=== PATIENT | male | born 1960 | race Two or more races ===

== ENCOUNTER 2017-07-27 22:57 | Emergency (ER) | payer OTHER ==
[2017-07-27 23:12] VITALS: PULSE 97; TEMP 97.5; BMI 33.1
--- NOTE | 2017-07-27 23:30 | PDOC ---
History of Present Illness <Frances Chanel - Last Filed: 07/28/17 01:48> - General History Source: Patient Exam Limitations: No Limitations - History of Present Illness Initial Comments: 07/28/17 02:11 Patient is a 57 year old male with a significant past medical history of HTN, Anxiety, who presents to the ED with complaints of chest discomfort and high blood pressure that began earlier this evening. Patient reports leaving his friends house when he began to experience what he felt was an anxiety attack followed by right sided chest discomfort secondary to high BP. He reports experiencing associated symptoms of bilateral leg cramping of thigh and calves. Denies nausea, vomiting. Denies fevers, chills. Denies diarrhea, constipation, dysuria, hematuria. Denies trauma to affected area. Denies any other symptoms. Allergies: None Social history: No smoking. No alcohol. No illicit drugs. Surgical history: None PMD: Dr. Strickland <Zaire Lemus - Last Filed: 07/28/17 02:12> - General Chief Complaint: Psychiatric Stated Complaint: BLOOD PRESSURE Time Seen by Provider: 07/27/17 23:30 Past History - Suicide/Smoking/Psychosocial Hx Smoking History: Never smoked <ChanelFrances - Last Filed: 07/28/17 01:48> <Zaire Lemus - Last Filed: 07/28/17 02:12> - Past Medical History Allergies/Adverse Reactions: Allergies Allergy/AdvReac Type Severity Reaction Status Date / Time No Known Allergies Allergy Verified 07/27/17 23:12 Home Medications: Ambulatory Orders NK [No Known Home Medication] 07/28/17 Review of Systems - Review of Systems Able to Perform ROS?: Yes Comments:: 07/28/17 02:11 GENERAL/CONSTITUTIONAL: No fever or chills. No weakness. HEAD, EYES, EARS, NOSE AND THROAT: No change in vision. No ear pain or discharge. No sore throat. CARDIOVASCULAR: +Chest discomfort. No shortness of breath. RESPIRATORY: No cough, wheezing, or hemoptysis. GASTROINTESTINAL: No nausea, vomiting, diarrhea or constipation. GENITOURINARY: No dysuria, frequency, or change in urination. MUSCULOSKELETAL: +Bilateral leg cramping. No joint or muscle swelling. No neck or back pain. SKIN: No rash NEUROLOGIC: No headache, vertigo, loss of consciousness, or change in strength/ sensation. ENDOCRINE: No increased thirst. No abnormal weight change. HEMATOLOGIC/LYMPHATIC: No anemia, easy bleeding, or history of blood clots. ALLERGIC/IMMUNOLOGIC: No hives or skin allergy. <Zaire Lemus - Last Filed: 07/28/17 02:12> *Physical Exam - Vital Signs Last Vital Signs Temp Pulse Resp BP Pulse Ox 97.5 F L 97 H 18 167/73 100 07/27/17 23:06 07/27/17 23:13 07/27/17 23:13 07/27/17 23:13 07/27/17 23:06 <Frances Chanel - Last Filed: 07/28/17 01:48> - Vital Signs Last Vital Signs Temp Pulse Resp BP Pulse Ox 97.5 F L 97 H 18 156/74 100 07/27/17 23:06 07/27/17 23:13 07/27/17 23:13 07/28/17 01:34 07/27/17 23:06 - Physical Exam Comments: 07/28/17 02:11 GENERAL: Awake, alert, and fully oriented, in no acute distress HEAD: No signs of trauma EYES: PERRLA, EOMI, sclera anicteric, conjunctiva clear ENT: Auricles normal inspection, hearing grossly normal, nares patent, oropharynx clear without exudates. Moist mucosa NECK: Normal ROM, supple, no lymphadenopathy, JVD, or masses LUNGS: Breath sounds equal, clear to auscultation bilaterally. No wheezes, and no crackles HEART: Regular rate and rhythm, normal S1 and S2, no murmurs, rubs or gallops ABDOMEN: Soft, nontender, normoactive bowel sounds. No guarding, no rebound. No masses EXTREMITIES: Normal range of motion, no edema. No clubbing or cyanosis. No cords, erythema, or tenderness NEUROLOGICAL: Cranial nerves II through XII grossly intact. Normal speech, normal gait SKIN: Warm, Dry, normal turgor, no rashes or lesions noted. <Zaire Lemus - Last Filed: 07/28/17 02:12> Heart Score/ECG Review - ECG Intrepretation Comment:: 07/28/17 01:35 Completed @23:21:15 Sinus Bradycardia Possible left atrial enlargement Incomplete right bundle branch block Left ventricular hypertrophy Abnormal ECG Vent. rate 52 bpm NM interval 176 ms QRS duration 98 ms <Zaire Lemus - Last Filed: 07/28/17 02:12> ED Treatment Course - LABORATORY CBC & Chemistry Diagram: 07/28/17 00:03 07/28/17 00:03 <Frances Chanel - Last Filed: 07/28/17 01:48> - LABORATORY CBC & Chemistry Diagram: 07/28/17 00:03 07/28/17 00:03 - ADDITIONAL ORDERS Additional order review: Laboratory Results 07/28/17 00:03 Sodium 141 Potassium 3.8 Chloride 106 Carbon Dioxide 23 Anion Gap 12 BUN 14 Creatinine 0.9 Creat Clearance w eGFR > 60 Random Glucose 98 Calcium 8.4 L Total Bilirubin 0.8 AST 21 ALT 17 Alkaline Phosphatase 85 Creatine Kinase 99 Troponin I < 0.02 Total Protein 7.6 Albumin 3.9 07/28/17 00:03 RBC 5.25 MCV 85.3 MCHC 33.9 RDW 13.4 MPV 7.9 Neutrophils % 67.9 Lymphocytes % 17.7 Monocytes % 11.4 H Eosinophils % 2.4 Basophils % 0.6 - Medications Given in the ED: ED Medications Discontinued Medications Generic Name Dose Route Start Last Admin Trade Name Freq PRN Reason Stop Dose Admin Lisinopril 20 mg 07/28/17 01:23 07/28/17 01:34 Prinivil PO 07/28/17 01:24 20 mg ONCE ONE Administration Nitroglycerin 0.4 mg 07/27/17 23:55 07/28/17 00:05 Nitrostat - SL 07/27/17 23:56 0.4 mg ONCE ONE Administration <Zaire Lemus - Last Filed: 07/28/17 02:12> Medical Decision Making - Medical Decision Making 07/28/17 01:44 Pt comes with HTN; he also has a hx of bradycardia. Pt has anxiety. He was out with friends today and says that he ate out and perhaps ate something salty. He comes now with BP. He has slight CP, atypical fleeting on the right side of his chest. Labs normal, exam normal, ekg and cxr normal. Pt will be given an extra dose of his lisinopril he will be discharged home. Pt feels well and he has no other complaints. STates that he is under stress; he is having financial problems. 07/28/17 01:48 Pt has an appointment with a obstetrician in the coming week. He is stable for discahrge home. <Frances Chanel - Last Filed: 07/28/17 01:48> *DC/Admit/Observation/Transfer - Discharge Dispostion Admit: No <Frances Chanel - Last Filed: 07/28/17 01:48> - Attestations Scribe Attestion: 07/28/17 01:37 Documentation prepared by Zaire Lemus, acting as medical information officer for Frances Chanel MD/DO. <Zaire Lemus - Last Filed: 07/28/17 02:12> Diagnosis at time of Disposition: Atypical chest pain - Discharge Dispostion Disposition: HOME Condition at time of disposition: Stable - Referrals Referrals: Shilo Strickland MD [Primary Care Provider] - - Patient Instructions Printed Discharge Instructions: DI for Atypical Chest Pain
[2017-07-27] MEDS ORDERED: NITROGLYCERIN SUBLINGUAL 1/150 0.4 MG TAB SL ONE (23:55)
[2017-07-28 00:12] LABS: BASO % 0.6 % (0-2.0); EOS % 2.4 % (0-4.5); HEMATOCRIT 44.8 % (35.4-49); HEMOGLOBIN 15.2 GM/dL (11.7-16.9); LYMPH % 17.7 % (8-40); MCH 28.9 pg (25.7-33.7); MCHC 33.9 g/dl (32.0-35.9); MEAN CELL VOLUME 85.3 fl (80-96); MEAN PLT VOLUME 7.9 fl (7.5-11.1); MONO % 11.4 % (3.8-10.2); NEUT % 67.9 % (42.8-82.8); PLATELET COUNT 254 K/MM3 (134-434); RBC 5.25 M/mm3 (4.00-5.60); RDW 13.4 % (11.9-15.9); WHITE BLOOD COUNT 11.1 K/mm3 (4.0-10.0)
[2017-07-28 00:41] LABS: ALBUMIN 3.9 g/dl (3.4-5.0); ANION GAP 12 (8-16); BILIRUBIN,TOTAL 0.8 mg/dL (0.2-1.0); BLOOD UREA NITROGEN 14 mg/dL (7-18); CALCIUM 8.4 mg/dL (8.5-10.1); CHLORIDE 106 mmol/L (98-107); CO2 23 mmol/L (21-32); CREATININE 0.9 mg/dL (0.7-1.3); GLUCOSE,RANDOM 98 mg/dL (74-106); POTASSIUM 3.8 mmol/L (3.5-5.1); SGOT/AST 21 U/L (15-37); SGPT/ALT 17 U/L (12-78); SODIUM 141 mmol/L (136-145); TOT PROT 7.6 g/dl (6.4-8.2)
[2017-07-28 00:43] LABS: ALK PHOS 85 U/L (45-117)
[2017-07-28] MEDS ORDERED: LISINOPRIL 20 MG TABLET (FP) PO ONE (01:23)
[2017-07-28] MEDS ORDERED: LISINOPRIL 20 MG TABLET (FP) ONE (01:32)
[2017-07-28 01:34] VITALS: BP 156/74
--- NOTE | 2017-07-31 01:09 | EKG ---
Test Reason : Blood Pressure : / mmHG Vent. Rate : 052 BPM Atrial Rate : 052 BPM P-R Int : 176 ms QRS Dur : 098 ms QT Int : 434 ms P-R-T Axes : 050 -27 004 degrees QTc Int : 403 ms SINUS BRADYCARDIA POSSIBLE LEFT ATRIAL ENLARGEMENT INCOMPLETE RIGHT BUNDLE BRANCH BLOCK LEFT VENTRICULAR HYPERTROPHY ABNORMAL ECG NO PREVIOUS ECGS AVAILABLE Confirmed by STEVEN CARDENAS MD ([id number]) on 07/31/2017 1:09:01 AM Referred By: Confirmed By:STEVEN CARDENAS MD
== END 2017-07-28 02:00 | disposition home or self-care (01) ==
LOC: JER 22:57
DX: R07.89 Other chest pain (principal); I10 Essential (primary) hypertension
CPT/HCPCS: 36415; 71046-TC-FY; 80053; 82550; 84484; 85025; 93005; 93010; 99281-25

== ENCOUNTER 2018-04-21 15:51 | Emergency (ER) | payer OTHER ==
--- NOTE | 2018-04-21 16:12 | PDOC ---
Rapid Medical Evaluation Time Seen by Provider: 04/21/18 16:09 Medical Evaluation: Allergies Allergy/AdvReac Type Severity Reaction Status Date / Time No Known Allergies Allergy Verified 07/27/17 23:12 04/21/18 16:10 I have performed a brief in-person evaluation of this patient. The patient presents with a chief complaint of:severe lower back and abd pain x several days. Also c/o urinating more frequently x 1 month. H/o HTN Pertinent physical exam findings: BP 170/74,benign abd, no CVAT I have ordered the following:labs/ua The patient will proceed to the ED for further evaluation Discharge Disposition - Diagnosis Back pain Qualifiers: Back pain location: low back pain Chronicity: acute Back pain laterality: bilateral Sciatica presence: without sciatica Qualified Code(s): M54.5 - Low back pain - Discharge Dispostion Condition at time of disposition: Stable - Referrals - Patient Instructions - Post Discharge Activity
[2018-04-21 16:14] VITALS: BMI 33.1
--- NOTE | 2018-04-21 16:20 | PDOC ---
History of Present Illness - General Chief Complaint: Pain, Acute Stated Complaint: stomach discomfort/back pain Time Seen by Provider: 04/21/18 16:09 - History of Present Illness Initial Comments: The patient is a 57M w/ a history of HTN who presents for evaluation of 1w of lower back pain and generalized abdominal cramping. The patient reports that the back pain started first. The patient described the lower back pain as an intermittent, dull, and b/l. He reports that the abdominal pain started 1-2 days later. Described at generalized , cramping, constant but waxing/waning, and worse at the umbilicus. He tried taking 2 Dorys for his pain with no relief. He denies having had this pain before. Denies fevers/chills, recent illness, STOKES, vision change, chest pain, SOB, cough , N/V/C/D, dysuria, hematuria, or blood in his stool. 04/21/18 16:56 Past History - Past Medical History Allergies/Adverse Reactions: Allergies Allergy/AdvReac Type Severity Reaction Status Date / Time No Known Allergies Allergy Verified 07/27/17 23:12 Home Medications: Ambulatory Orders Lisinopril [Prinivil -] 40 mg PO DAILY 04/21/18 RX: Amlodipine Besylate 5 mg PO DAILY 04/21/18 COPD: No HTN: Yes - Surgical History Cardiac Surgery: No Gastric Stapling: No Lung Surgery: No - Immunization History Immunization Up to Date: No - Suicide/Smoking/Psychosocial Hx Smoking History: Never smoked Have you smoked in the past 12 months: No Information on smoking cessation initiated: No Hx Alcohol Use: No Drug/Substance Use Hx: No Review of Systems - Review of Systems Able to Perform ROS?: Yes Comments:: GENERAL/CONSTITUTIONAL: No fever or chills. No weakness HEAD, EYES, EARS, NOSE AND THROAT: No change in vision. No ear pain or discharge. No sore throat CARDIOVASCULAR: No chest pain or shortness of breath RESPIRATORY: Denies cough, hemoptysis GASTROINTESTINAL: per HPI GENITOURINARY: No dysuria, frequency, or change in urination MUSCULOSKELETAL: No joint or muscle swelling or pain. No neck or back pain SKIN: No rash NEUROLOGIC: No headache, vertigo, loss of consciousness, or change in strength/ sensation ENDOCRINE: No increased thirst. No abnormal weight change HEMATOLOGIC/LYMPHATIC: No anemia, easy bleeding, or history of blood clots ALLERGIC/IMMUNOLOGIC: No hives or skin allergy 04/21/18 16:19 Is the patient limited Albanian proficient: No *Physical Exam - Vital Signs Last Vital Signs Temp Pulse Resp BP Pulse Ox 97.9 F 63 16 170/74 100 04/21/18 16:11 04/21/18 16:11 04/21/18 16:11 04/21/18 16:11 04/21/18 16:11 - Physical Exam Comments: GENERAL: Awake, alert, and fully oriented, in no acute distress HEAD: No signs of trauma, normocephalic, atraumatic EYES: PERRLA, EOMI, sclera anicteric, conjunctiva clear ENT: Hearing grossly normal, nares patent, oropharynx clear without exudates LUNGS: No distress, speaks full sentences, clear to auscultation bilaterally HEART: Regular rate and rhythm, normal S1 and S2, no murmurs appreciated, peripheral pulses normal and equal bilaterally ABDOMEN: Soft, epigastic TTP w/o rebound or guarding, normoactive bowel sounds EXTREMITIES : Normal inspection, Normal range of motion, no edema. No clubbing or cyanosis NEUROLOGICAL: Cranial nerves II through XII grossly intact. Normal speech, normal gait, no focal sensorimotor deficits SKIN: Warm, Dry, normal turgor, no rashes or lesions noted 04/21/18 16:20 Moderate Sedation - Procedure Monitoring Vital Signs: Procedure Monitoring Vital Signs Temperature 97.9 F 04/21/18 16:11 Pulse Rate 63 04/21/18 16:11 Respiratory Rate 16 04/21/18 16:11 Blood Pressure 170/74 04/21/18 16:11 O2 Sat by Pulse Oximetry (%) 100 04/21/18 16:11 ED Treatment Course - LABORATORY CBC & Chemistry Diagram: 04/21/18 16:54 04/21/18 16:54 Medical Decision Making - Medical Decision Making The patient is a 57M w/ a history of HTN who presents for evaluation of 1w of dull lower back pain and cramping generalized abdominal pain ED Course CMP, CBC, lipase, UA, UCx sent from fast track 04/21/18 17:14 Mild leukocytosis, WBC 13.3 No anemia Lytes wnl No KAR LFTs wnl Lipase wnl UA pending 04/21/18 18:00 Trop I added 12/10/18 18:08 Tylenol and Maalox for symptomatic relief 04/21/18 18:09 UA w/o evidence of UTI 04/21/18 18:31 Trop I neg 04/21/18 18:39 CT A&P to evaluate for inta-abdominal pathology 04/21/18 19:40 CT pending being performed 04/21/18 21:04 CT read pending 04/21/18 22:39 CT/ABDOMEN & PELVIS CT WITH CONTR Findings: There is a 6.3 cm left renal cyst with smaller right renal cysts The prostate gland is enlarged measuring 5.9 x 4.5 x 5.7 cm. There is no evidence of acute bony pathology. IMPRESSION: 1. Bilateral renal cysts. 2. Prostatic enlargement. 3. No acute pathology within the abdomen or pelvis. 04/21/18 23:10 plan for D/C w/ PCP f/u Discharge instructions and return precautions given Patient in agreement and verbalized understanding Dispo: home 04/21/18 23:14 *DC/Admit/Observation/Transfer Diagnosis at time of Disposition: Back pain Qualifiers: Back pain location: low back pain Chronicity: acute Back pain laterality: bilateral Sciatica presence: without sciatica Qualified Code(s): M54.5 - Low back pain Abdominal pain Qualifiers: Abdominal location: generalized Qualified Code(s): R10.84 - Generalized abdominal pain - Discharge Dispostion Disposition: HOME Condition at time of disposition: Stable Decision to Admit order: No - Referrals Referrals: Shilo Strickland MD [Primary Care Provider] - [facility] [place] [Provider Group] - Patient Instructions Printed Discharge Instructions: DI for Abdominal Pain-Adult Additional Instructions: You were seen in the Emergency Department today for evaluation of abdominal pain and back pain. Review the handouts provided at discharge. Follow up with your primary care provider. Return to the Emergency Department if you develop fevers/chills, worsening symptoms, or any new/concerning symptoms. - Post Discharge Activity
[2018-04-21 17:19] LABS: BASO % 0.9 % (0-2.0); EOS % 11.9 % (0-4.5); HEMOGLOBIN 15.6 GM/dL (11.7-16.9); LYMPH % 16.8 % (8-40); MCH 29.4 pg (25.7-33.7); MCHC 34.7 g/dl (32.0-35.9); MEAN CELL VOLUME 84.7 fl (80-96); MEAN PLT VOLUME 8.1 fl (7.5-11.1); MONO % 11.1 % (3.8-10.2); NEUT % 59.3 % (42.8-82.8); PLATELET COUNT 289 K/MM3 (134-434); RBC 5.31 M/mm3 (4.00-5.60); RDW 13.1 % (11.9-15.9); WHITE BLOOD COUNT 13.3 K/mm3 (4.0-10.0)
--- NOTE | 2018-04-21 17:26 | PDOC ---
Attending Attestation - HPI HPI: 04/21/18 17:37 The patient is a 57 year old male with a past medical history of HTN here today for evaluation of one week of lower back pain. The patient reports that his back pain is bilateral and dull in quality. He also reports that a few days after his back pain began he began to feel diffuse abdominal pain. The patient reports that he took 2 scarlet which provided no relief. He notes several weeks of polyuria for which he has an appointment with a urologist. Patient denies headache, lightheadedness. Denies fever, chills. Denies chest pain, shortness of breath. Denies nausea, vomiting, diarrhea. Denies lower extremity edema. Allergies: NKA PCP: Shilo Strickland <Tee Caraballo - Last Filed: 04/21/18 17:37> - Resident Resident Name: Zia Patel - ED Attending Attestation I have performed the following: I have examined & evaluated the patient, The case was reviewed & discussed with the resident, I agree w/resident's findings & plan, Exceptions are as noted - HPI HPI: 04/21/18 17:26 1 week B/l back pain x 1 week and abd bcramping p[ain . No n,v, diarrhea Several weeks of polyuria and has an appt with urologist. - Physicial Exam PE: 04/21/18 23:18 alert,ambulatory 57 yo male with b/l low back pain who dev some diffuse abd cramping today Denies fever ,chills,vomiting,diarrhea wnwd 57 yo male w bilateral back pain in L5,sacral area head ncat neck supple lungs cta b/l cvs [id number] abd soft,no rebound,no guarding ext no edema paraspinal back tenderness in L5 but no midline vertebral tenderness skin warm and dry neuro axox3,ambulatory,motor strength 5/5. b/l, dtr+2,down going toes - Medical Decision Making 04/21/18 23:23 pt has had some low back pain for weeks denies any bladder or bowel incontinence,no saddle anesthesia labs reviewed ct scan abd/pelvic NEGATIVE for any acute intrabdominal etiologies, NO SBO,no colitis,no appendicitis, no masses,no lymphadenopathy pt feels much better <Estrella Desai - Last Filed: 04/21/18 23:30>
[2018-04-21 17:45] LABS: LIPASE 160 U/L (73-393)
[2018-04-21 17:46] LABS: ALBUMIN 4.1 g/dl (3.4-5.0); ALK PHOS 102 U/L (45-117); ANION GAP 8 MMOL/L (8-16); BILIRUBIN,TOTAL 0.8 mg/dL (0.2-1); BLOOD UREA NITROGEN 16 mg/dL (7-18); CALCIUM 8.9 mg/dL (8.5-10.1); CHLORIDE 106 mmol/L (98-107); CO2 25 mmol/L (21-32); GLUCOSE,RANDOM 97 mg/dL (74-106); POTASSIUM 3.9 mmol/L (3.5-5.1); SGOT/AST 25 U/L (15-37); SGPT/ALT 25 U/L (13-61); SODIUM 139 mmol/L (136-145); TOT PROT 7.6 g/dl (6.4-8.2)
[2018-04-21] MEDS ORDERED: ACETAMINOPHEN 325 MG TABLET (FP) PO ONE (17:52)
[2018-04-21] MEDS ORDERED: MAG HYDROX/AL HYDROX/SIMETH 30 ML UNIT-DOSE CUP PO ONE (18:05)
[2018-04-21 18:07] LABS: URINE APPEARANCE CLEAR; URINE BILIRUBIN NEGATIVE (<2.0 mg/dL); URINE COLOR COLORLESS; URINE GLUCOSE (UA) NEGATIVE (NEGATIVE); URINE KETONE NEGATIVE (NEGATIVE); URINE LEUK ESTERASE NEGATIVE (NEGATIVE); URINE NITRITE NEGATIVE (NEGATIVE); URINE PROTEIN NEGATIVE (NEGATIVE); URINE UROBILINOGEN NEGATIVE mg/dL (0.2-1.0)
[2018-04-21] MEDS ORDERED: ACETAMINOPHEN 325 MG TABLET (FP) ONE (18:08)
[2018-04-21] MEDS ORDERED: MAG HYDROX/AL HYDROX/SIMETH 30 ML UNIT-DOSE CUP ONE (18:08)
[2018-04-21 18:53] VITALS: BP 116/68; PULSE 50; TEMP 97.7
== END 2018-04-21 23:28 | disposition home or self-care (01) ==
LOC: JER 15:51
DX: M54.5 Low back pain (principal); I10 Essential (primary) hypertension
CPT/HCPCS: 36415; 74177-TC; 80053; 81003; 83690; 84484; 85025; 87086; 99283-25

== ENCOUNTER 2018-10-04 00:16 | Emergency (ER) | payer OTHER | END 2018-10-04 05:17 | disposition home or self-care (01) | LOC: JER 00:16 ==

== ENCOUNTER 2019-02-11 00:34 | Emergency (ER) | payer SELFPAY ==
[2019-02-11 00:50] VITALS: BMI 32.8
--- NOTE | 2019-02-11 01:23 | PDOC ---
History of Present Illness - General Chief Complaint: Chest Pain Stated Complaint: CHEST PAIN/NUMBNESS Time Seen by Provider: 02/11/19 01:23 History Source: Patient Exam Limitations: No Limitations - History of Present Illness Initial Comments: 02/11/19 02:57 58-year-old male complaining of midsternal chest pain radiating numbness to the left arm 1 hour prior to arrival.patient reports that he also felt dizzy. Now symptoms has resolved. Patient denies nausea, vomiting, , abdominal pain, fevers/chills. Patient reports that he has a history of palpitations and has been seen by cardiology. Patient had a negative stress test, echo and a cardiac cath one year ago. past medical history hypertension Past History - Past Medical History Allergies/Adverse Reactions: Allergies Allergy/AdvReac Type Severity Reaction Status Date / Time No Known Allergies Allergy Verified 02/11/19 00:46 Home Medications: Ambulatory Orders Amlodipine Besylate 5 mg PO DAILY 04/21/18 Lisinopril [Prinivil -] 40 mg PO DAILY 04/21/18 Alfuzosin HCl [Alfuzosin HCl ER] 10 mg PO DAILY 10/04/18 Hydroxyzine HCl 10 mg PO DAILY 10/04/18 Metoprolol Succinate 25 mg PO DAILY 10/04/18 Atorvastatin Calcium [Lipitor] 10 mg PO DAILY 02/11/19 COPD: No GI Disorders: Yes HTN: Yes Hypercholesterolemia: Yes - Surgical History Cardiac Surgery: No Gastric Stapling: No Lung Surgery: No - Immunization History Immunization Up to Date: No - Psycho Social/Smoking Cessation Hx Smoking History: Never smoked Have you smoked in the past 12 months: No Hx Alcohol Use: No Drug/Substance Use Hx: No Review of Systems - Review of Systems Able to Perform ROS?: Yes Is the patient limited Greek proficient: No Constitutional: No: Symptoms Reported, See HPI, Chills, Diaphoresis, Fever, Loss of Appetite, Malaise, Night Sweats, Weakness, Weight Stable, Unintentional Wgt. Loss, Unexplained wgt Loss, Other Cardiac (ROS): Yes: Chest Pain, Lightheadedness *Physical Exam - Vital Signs Last Vital Signs Temp Pulse Resp BP Pulse Ox 97.9 F 49 L 17 121/65 99 02/11/19 06:04 02/11/19 06:04 02/11/19 06:04 02/11/19 06:04 02/11/19 06:04 - Physical Exam General Appearance: Yes: Appropriately Dressed Respiratory/Chest: positive: Lungs Clear, Normal Breath Sounds. negative: Chest Tender Cardiovascular: positive: Regular Rate, Bradycardia Gastrointestinal/Abdominal: positive: Normal Bowel Sounds, Soft. negative: Tender Musculoskeletal: positive: Normal Inspection Extremity: positive: Normal Capillary Refill, Normal Inspection, Normal Range of Motion Integumentary: positive: Normal Color, Dry, Warm Neurologic: positive: Fully Oriented, Alert, Normal Mood/Affect Heart Score/ECG Review - History History: Slightly suspicious - Electrocardiogram EKG: Normal - Age Age: 45-65 - Risk Factors Risk Factors Heart Score: Yes Hx Hypercholesterolemia, Yes Hx Hypertension Based on the list above the patient has:: 1-2 risk factors - Troponin Troponin: </= normal limit - Score Heart Score - Total: 2 - ECG Intrepretation Rhythm: Regular Rhythm Comment:: 02/11/19 02:46 sinus bradycardia 02/11/19 06:20 ED Treatment Course - LABORATORY CBC & Chemistry Diagram: 02/11/19 01:30 02/11/19 01:30 - ADDITIONAL ORDERS Additional order review: Laboratory Results 02/11/19 02/11/19 02/11/19 05:30 01:30 01:30 PT with INR 10.90 INR 0.92 Sodium Potassium Chloride Carbon Dioxide Anion Gap BUN Creatinine Est GFR (CKD-EPI)AfAm Est GFR (CKD-EPI)NonAf Random Glucose Calcium Magnesium 2.2 Total Bilirubin AST ALT Alkaline Phosphatase Creatine Kinase Troponin I < 0.02 Total Protein Albumin 02/11/19 02/11/19 01:30 01:30 PT with INR INR Sodium 138 Potassium 3.9 Chloride 101 Carbon Dioxide 29 Anion Gap 8 BUN 22.6 H Creatinine 1.1 Est GFR (CKD-EPI)AfAm 84.71 Est GFR (CKD-EPI)NonAf 73.09 Random Glucose 123 H Calcium 9.2 Magnesium Total Bilirubin 1.1 H AST 31 ALT 26 Alkaline Phosphatase 107 Creatine Kinase 87 Troponin I < 0.02 Total Protein 7.2 Albumin 4.1 02/11/19 01:30 RBC 5.32 MCV 85.4 MCHC 33.3 RDW 12.9 MPV 8.4 Neutrophils % 51.8 D Lymphocytes % 30.7 D Monocytes % 13.0 H D Eosinophils % 3.7 D Basophils % 0.8 - RADIOLOGY Radiology Studies Ordered: Category Date Time Status CHEST PA & LAT [RAD] Stat Radiology 02/11/19 01:24 Taken Medical Decision Making - Medical Decision Making 02/11/19 04:10 A: chest pain P: cbc cmp cardiac enzymes chest xray: neg EKG 02/11/19 06:07 repeZT troponin negative,. patuent rpeat chest pain . will have patient follwo up with pcp/ cardiolog 02/11/19 06:22 repeat EKG sinus bradycardia. HRT on monitor 48-54 BPM. patient remains chest pain free. Discharge - Discharge Information Problems reviewed: Yes Clinical Impression/Diagnosis: Atypical chest pain - Follow up/Referral Referrals: Shilo Strickland MD [Primary Care Provider] - - Patient Discharge Instructions Patient Printed Discharge Instructions: DI for Atypical Chest Pain Additional Instructions: it is important that he follow-up with your cad draftsman. return to the emergency room for any worsening symptoms. - Post Discharge Activity Work/Back to School Note: Back to Work
--- NOTE | 2019-02-11 01:54 | PDOC ---
*Physical Exam - Vital Signs Last Vital Signs Temp Pulse Resp BP Pulse Ox 98.0 F 52 L 15 104/59 L 100 02/11/19 01:24 02/11/19 01:24 02/11/19 01:24 02/11/19 01:24 02/11/19 01:24 ED Treatment Course - LABORATORY CBC & Chemistry Diagram: 02/11/19 01:30 02/11/19 01:30 Medical Decision Making - Medical Decision Making 02/11/19 01:53 Patient seen by the advanced practice provider under my direct supervision. Ancillary testing reviewed as necessary. I agree with plan as outlined by the advanced practice provider. Discharge - Discharge Information Problems reviewed: Yes Clinical Impression/Diagnosis: Atypical chest pain - Follow up/Referral Referrals: Shilo Strickland MD [Primary Care Provider] - - Patient Discharge Instructions - Post Discharge Activity
[2019-02-11 02:09] LABS: BASO % 0.8 % (0-2.0); EOS % 3.7 % (0-4.5); HEMATOCRIT 45.4 % (35.4-49); HEMOGLOBIN 15.1 GM/dL (11.7-16.9); LYMPH % 30.7 % (8-40); MCH 28.4 pg (25.7-33.7); MCHC 33.3 g/dl (32.0-35.9); MEAN CELL VOLUME 85.4 fl (80-96); MEAN PLT VOLUME 8.4 fl (7.5-11.1); NEUT % 51.8 % (42.8-82.8); PLATELET COUNT 266 K/MM3 (134-434); RBC 5.32 M/mm3 (4.00-5.60); RDW 12.9 % (11.9-15.9); WHITE BLOOD COUNT 10.5 K/mm3 (4.0-10.0)
[2019-02-11 02:26] LABS: INR 0.92 (0.83-1.09); PROTHROMBIN TIME (PATIENT) 10.9 SEC (9.7-13.0)
[2019-02-11 02:33] LABS: ALBUMIN 4.1 g/dl (3.4-5.0); BILIRUBIN,TOTAL 1.1 mg/dL (0.2-1); BLOOD UREA NITROGEN 22.6 mg/dL (7-18); CALCIUM 9.2 mg/dL (8.5-10.1); CREATININE 1.1 mg/dL (0.55-1.3); POTASSIUM 3.9 mmol/L (3.5-5.1); TOT PROT 7.2 g/dl (6.4-8.2)
[2019-02-11 06:05] VITALS: BP 121/65; PULSE 49; TEMP 97.9
--- NOTE | 2019-02-11 11:22 | EKG ---
Test Reason : Blood Pressure : / mmHG Vent. Rate : 053 BPM Atrial Rate : 053 BPM P-R Int : 188 ms QRS Dur : 104 ms QT Int : 424 ms P-R-T Axes : 052 -34 -49 degrees QTc Int : 397 ms SINUS BRADYCARDIA LEFT AXIS DEVIATION PULMONARY DISEASE PATTERN MINIMAL VOLTAGE CRITERIA FOR LVH, MAY BE NORMAL VARIANT NONSPECIFIC ST AND T WAVE ABNORMALITY ABNORMAL ECG WHEN COMPARED WITH ECG OF 04-OCT-2018 00:56, NONSPECIFIC T WAVE ABNORMALITY NOW EVIDENT IN ANTERIOR LEADS Confirmed by RONALD MARTINEZ, STEVEN ([id number]) on 02/11/2019 11:22:29 AM Referred By: Confirmed By:STEVEN CARDENAS MD
--- NOTE | 2019-02-11 11:22 | EKG ---
Test Reason : Blood Pressure : / mmHG Vent. Rate : 045 BPM Atrial Rate : 045 BPM P-R Int : 194 ms QRS Dur : 106 ms QT Int : 402 ms P-R-T Axes : 045 -30 -34 degrees QTc Int : 347 ms SINUS BRADYCARDIA LEFT AXIS DEVIATION INCOMPLETE RIGHT BUNDLE BRANCH BLOCK MINIMAL VOLTAGE CRITERIA FOR LVH, MAY BE NORMAL VARIANT NONSPECIFIC ST AND T WAVE ABNORMALITY ABNORMAL ECG WHEN COMPARED WITH ECG OF 11-FEB-2019 00:43, NO SIGNIFICANT CHANGE WAS FOUND Confirmed by STEVEN CARDENAS MD ([id number]) on 02/11/2019 11:22:35 AM Referred By: Confirmed By:STEVEN CARDENAS MD
== END 2019-02-11 06:48 | disposition home or self-care (01) ==
LOC: JER 00:34
DX: R07.89 Other chest pain (principal); I10 Essential (primary) hypertension; E78.00 Pure hypercholesterolemia, unspecified
CPT/HCPCS: 36415; 71046-TC-FY; 80053; 82550; 83735; 84484; 85025; 85610; 93005; 93010; 99284-25

== ENCOUNTER 2019-06-05 03:55 | Emergency (ER) | payer OTHER ==
[2019-06-05] MEDS ORDERED: IPRATROPIUM BR 0.02% 0.5 MG/2.5 ML VIAL.NEB. NEB ONE ×2 (04:27→04:52)
[2019-06-05] MEDS ORDERED: IBUPROFEN 600 MG TABLET (FP) PO ONE ×2 (04:27→04:52)
[2019-06-05] MEDS ORDERED: guaiFENesin/CODEINE 10 ML UNIT-DOSE CUPS PO ONE (04:27)
[2019-06-05 04:28] VITALS: BP 130/55; PULSE 50; TEMP 98; BMI 32.5
--- NOTE | 2019-06-05 04:28 | PDOC ---
History of Present Illness - General Chief Complaint: Nasal Bleeding Stated Complaint: COUGH,NOSE BLEED Time Seen by Provider: 06/05/19 04:20 History Source: Patient Exam Limitations: No Limitations - History of Present Illness Initial Comments: Ralph Gage is a 58 yo M w a hx of HTN, HLD and BPH who presents to the [facility] er with a productive cough for 3 days associated with chest pain when he coughs, and increasing amounts of sputum production in his cough. He states that today he started bleeding from his nose after excessive nose picking. He thinks he has had a cold for the past couple days and is worried he has bronchitis. The patient is in the ER primarily for relief of his throat pain when he coughs. He has tried taking OTC cough syrup with minimal relief. He is not sure the name of the OTC cough medicine he has taken. Patient states he had a cardiac cath one year ago which was completely normal. Denies fevers, chills, weight loss, nausea, vomiting, diaphoresis, CP radiation or worsening with physical activity. PCP: Shilo Strickland PSH: None reported Social Hx: Denies smoking, drinking, or other substance usage Allergies: wheat and shellfish Past History - Past Medical History Allergies/Adverse Reactions: Allergies Allergy/AdvReac Type Severity Reaction Status Date / Time shellfish derived Allergy Verified 06/05/19 05:10 wheat Allergy Verified 06/05/19 05:10 Home Medications: Ambulatory Orders Amlodipine Besylate 5 mg PO DAILY 04/21/18 Lisinopril [Prinivil -] 40 mg PO DAILY 04/21/18 Alfuzosin HCl [Alfuzosin HCl ER] 5 mg PO DAILY 10/04/18 Hydroxyzine HCl 25 mg PO DAILY 10/04/18 Metoprolol Succinate 25 mg PO DAILY 10/04/18 Atorvastatin Calcium [Lipitor] 40 mg PO DAILY 02/11/19 Metoclopramide HCl [Reglan] 5 mg PO DAILY 06/05/19 Simethicone [Mylicon -] 80 mg PO QID 06/05/19 COPD: No GI Disorders: Yes HTN: Yes Hypercholesterolemia: Yes - Surgical History Cardiac Surgery: No Gastric Stapling: No Lung Surgery: No - Immunization History Immunization Up to Date: No - Psycho Social/Smoking Cessation Hx Smoking History: Never smoked Have you smoked in the past 12 months: No Information on smoking cessation initiated: No Hx Alcohol Use: No Drug/Substance Use Hx: No Review of Systems - Review of Systems Able to Perform ROS?: Yes Comments:: CONSTITUTIONAL: Absent: fever, no chills, no fatigue EYES: Absent: visual changes ENT: Present: Sore throat Absent: ear pain CARDIOVASCULAR: Present: Chest pain Absent: no palpitations RESPIRATORY: Present: Cough Absent: no SOB GI: Absent: abdominal pain, no nausea, no vomiting, no constipation, no diarrhea GENITOURINARY: Absent: dysuria, no frequency, no hematuria MUSKULOSKELETAL: Absent: back pain, no arthralgia, no myalgia SKIN: Absent: rash NEURO: Absent: headache *Physical Exam - Vital Signs Last Vital Signs Temp Pulse Resp BP Pulse Ox 98.0 F 50 L 18 130/55 L 98 06/05/19 04:22 06/05/19 04:22 06/05/19 04:22 06/05/19 04:22 06/05/19 04:22 - Physical Exam GENERAL: Well-appearing, well-nourished. No apparent distress. HEENT: There is dry blood in the left nostril, no active bleeding. No posterior oropharyngeal erythema. Normocephalic, atraumatic. PERRL, EOM intact. CARDIOVASCULAR: Normal S1, S2. Regular rate and rhythm. PULMONARY: No evidence of respiratory distress. Lungs clear to auscultation bilaterally. No wheezing, rales or rhonchi. ABDOMEN: Soft, non-distended, non-tender. EXTREMITIES: Normal ROM in all four extremities. No gross deformities. SKIN: Warm, dry. No rash NEUROLOGICAL: No focal neurological deficits. ED Treatment Course - LABORATORY CBC & Chemistry Diagram: 06/05/19 04:57 06/05/19 04:57 - RADIOLOGY Radiology Studies Ordered: Category Date Time Status CHEST X-RAY PORTABLE* [RAD] Stat Radiology 06/05/19 04:28 Ordered Medical Decision Making - Medical Decision Making Ralph Gage is a 58 yo M w a hx of HTN, HLD and BPH who presents to the [facility] er with a productive cough for 3 days associated with chest pain when he coughs, and increasing amounts of sputum production in his cough. He states that today he started bleeding from his nose after excessive nose picking. He thinks he has had a cold for the past couple days and is worried he has bronchitis. The patient is in the ER primarily for relief of his throat pain when he coughs. He has tried taking OTC cough syrup with minimal relief. He is not sure the name of the OTC cough medicine he has taken. Vital Signs Temp Pulse Resp BP Pulse Ox 98.0 F 50 L 18 130/55 L 98 06/05/19 04:22 06/05/19 04:22 06/05/19 04:22 06/05/19 04:22 06/05/19 04:22 DDx IBNLT: viral bronchitis most likely, URI, electrolyte/metabolic disturbance , anemia, PNA, ACS, arrythmia Plan: EKG, labs, CXR, supportive care, re-assess EKG: Sinus bradycardia, Labs: Unremarkable, trop negative Re-assessment: Patient feels better after supportive care and requests to be discharged Disposition: Home with PCP fu - bronchitis instructions given Discharge - Discharge Information Problems reviewed: Yes Clinical Impression/Diagnosis: Acute viral bronchitis Condition: Improved Disposition: HOME - Admission No - Follow up/Referral Referrals: Shilo Strickland MD [Primary Care Provider] - - Patient Discharge Instructions Patient Printed Discharge Instructions: Acute Bronchitis (Alternative Therapy) , Acute Bronchitis Additional Instructions: You came into the ER with a cough and we believe you have bronchitis. take motrin/ibuprofen/advil as needed for throat discomfort and pain. Please schedule a follow up appointment with your doctor in the next 3 to 5 days to make sure you are feeling well and getting better. Come back to the Er immediately if your pain worsens, you get a fever, or have any other new or worsening concerns. thank you for coming to the [facility] ER. We hope you feel better soon! Print Language: JAPANESE - Post Discharge Activity
[2019-06-05] MEDS ORDERED: guaiFENesin/CODEINE 5 ML UNIT-DOSE CUPS PO ONE (04:52)
[2019-06-05 05:21] LABS: BASO % 1.1 % (0-2.0); EOS % 4.5 % (0-4.5); HEMATOCRIT 40.7 % (35.4-49); HEMOGLOBIN 13.7 GM/dL (11.7-16.9); LYMPH % 23.7 % (8-40); MCHC 33.8 g/dl (32.0-35.9); MEAN CELL VOLUME 85.7 fl (80-96); MEAN PLT VOLUME 7.3 fl (7.5-11.1); MONO % 15.3 % (3.8-10.2); NEUT % 55.4 % (42.8-82.8); PLATELET COUNT 282 K/MM3 (134-434); RBC 4.75 M/mm3 (4.00-5.60); RDW 13.3 % (11.9-15.9); WHITE BLOOD COUNT 9.3 K/mm3 (4.0-10.0)
--- NOTE | 2019-06-05 05:21 | PDOC ---
Attending Attestation - Resident Resident Name: Mateusz Zuñiga - ED Attending Attestation I have performed the following: I have examined & evaluated the patient, The case was reviewed & discussed with the resident, I agree w/resident's findings & plan, Exceptions are as noted - HPI HPI: 06/18/19 20:13 See resident HPI - Physicial Exam PE: 06/18/19 20:13 Agree with documented exam - Medical Decision Making 06/18/19 20:13 58M HTN, HLD, BPH with CC of sore throat a/w cp, productive cough for several days and epistaxis today after digital trauma f/u labs, ekg analgesia re-eval symptomatic improved dc home
[2019-06-05 05:44] LABS: ANION GAP 7 MMOL/L (8-16); BLOOD UREA NITROGEN 14.7 mg/dL (7-18); CALCIUM 8.6 mg/dL (8.5-10.1); CHLORIDE 106 mmol/L (98-107); CO2 28 mmol/L (21-32); CREATININE 0.8 mg/dL (0.55-1.3); GLUCOSE,RANDOM 89 mg/dL (74-106); POTASSIUM 3.9 mmol/L (3.5-5.1); SODIUM 140 mmol/L (136-145)
--- NOTE | 2019-06-05 13:50 | EKG ---
Test Reason : Blood Pressure : / mmHG Vent. Rate : 041 BPM Atrial Rate : 041 BPM P-R Int : 174 ms QRS Dur : 100 ms QT Int : 458 ms P-R-T Axes : 056 -26 -15 degrees QTc Int : 377 ms MARKED SINUS BRADYCARDIA POSSIBLE LEFT ATRIAL ENLARGEMENT INCOMPLETE RIGHT BUNDLE BRANCH BLOCK LEFT VENTRICULAR HYPERTROPHY NONSPECIFIC T WAVE ABNORMALITY ABNORMAL ECG WHEN COMPARED WITH ECG OF 11-FEB-2019 05:23, NONSPECIFIC T WAVE ABNORMALITY, IMPROVED IN ANTERIOR LEADS Confirmed by LLUVIA DUNCAN MD ([id number]) on 06/05/2019 1:50:29 PM Referred By: Confirmed By:LLUVIA DUNCAN MD
== END 2019-06-05 06:41 | disposition home or self-care (01) ==
LOC: JER 03:55
PROC: 3E0F7GC Introduction of Other Therapeutic Substance into Respiratory Tract, Via Natural or Artificial Opening (ICD-10-PCS; principal; 2019-06-05)
DX: J40 Bronchitis, not specified as acute or chronic (principal); B97.89 Other viral agents as the cause of diseases classified elsewhere; Z91.013 Allergy to seafood; Z91.018 Allergy to other foods
CPT/HCPCS: 36415; 80048; 84484; 85025; 93005; 93010; 94640; 99283-25